=== PATIENT | male | born 1955 | race Caucasian/White ===

== ENCOUNTER 2020-01-23 11:44 | Day surgery (SDC) | payer SELFPAY ==
[~2020-01-23] VITALS: Ht 172.7 cm; Wt 90.7 kg
[~2020-01-23 11:44] MED LIST: AMLODIPINE BESY10 MG PO; AVAPRO300 MG PO; HYDROCHLOROTHIA50 MG PO; METOPROLOL100 M1 PO
[2020-01-23] MEDS ORDERED: PERCOCET 5/325M1 TAB PO (13:40)
[2020-01-23 14:37] VITALS: BP 110/63
== END 2020-01-23 14:20 | disposition home or self-care (01) | DRG 355 ==
LOC: ORM 11:44
PROVIDERS: ATTEND Surgery
PROC: 0WQF0ZZ Repair Abdominal Wall, Open Approach (ICD-10-PCS; principal; 2020-01-23)
DX: K42.9 Umbilical hernia without obstruction or gangrene (principal); I10 Essential (primary) hypertension; Z20.828 Contact with and (suspected) exposure to other viral communicable diseases